=== PATIENT | female | born 1975 | race Caucasian/White ===

== ENCOUNTER 2023-07-18 18:04 | Emergency (ER) | payer SELFPAY ==
[~2023-07-18] VITALS: Ht 167.6 cm; Wt 81.8 kg
[2023-07-18 20:43] VITALS: BP 115/73; PULSE 68; TEMP 98
== END 2023-07-18 20:43 | disposition home or self-care (01) ==
LOC: COL.ER 18:04
DX: G43.909 Migraine, unspecified, not intractable, without status migrainosus (principal); Z87.891 Personal history of nicotine dependence
CPT/HCPCS: J1200; J1885; J2765; J7030